=== PATIENT | male | born 1975 | race Caucasian/White ===

== ENCOUNTER 2016-04-24 12:20 | Emergency (ER) | payer MEDICAID ==
[~2016-04-24] VITALS: Ht 175.3 cm; Wt 79.4 kg
[2016-04-24] MEDS ORDERED: IBUPROFEN 600 MG TABLET PO ONE ×2 (13:30→13:45)
[2016-04-24] MEDS ORDERED: ALBUTEROL FS 2.5 MG/3 ML VIAL.NEB NEB ONE (13:30)
[2016-04-24] MEDS ORDERED: IPRATROPIUM NEB FS 0.5 MG/2.5 ML AMPUL.NEB NEB ONE (13:30)
[2016-04-24] MEDS ORDERED: ALBUTEROL FS 2.5 MG/3 ML VIAL.NEB ONE (13:37)
[2016-04-24] MEDS ORDERED: IPRATROPIUM NEB FS 0.5 MG/2.5 ML AMPUL.NEB ONE (13:37)
[2016-04-24 14:26] VITALS: BP 124/82
== END 2016-04-24 14:26 | disposition home or self-care (01) ==
LOC: ER 12:23
DX: J40 Bronchitis, not specified as acute or chronic (principal); K21.9 Gastro-esophageal reflux disease without esophagitis; I10 Essential (primary) hypertension; F31.9 Bipolar disorder, unspecified; F17.200 Nicotine dependence, unspecified, uncomplicated
CPT/HCPCS: 71010-TC; 87400; A4606; Z7610